=== PATIENT | male | born 2000 | race Caucasian/White ===

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

== ENCOUNTER 2022-02-27 14:53 | Emergency (ER) | payer BC, OTHER ==
[~2022-02-27 14:53] MED LIST: NORCO 7.5-3251 EACH PO; ZYRTEC10 MG PO
[2022-02-28 01:31] LABS: HEMOGLOBIN 15.6 gm/dl (14.0-17.5); RED BLOOD COUNT 4.99 M/UL (4.20-5.50); WHITE BLOOD COUNT 14.8 K/UL (4.5-11.0)
[2022-02-28 01:58] LABS: BUN/CREATININE RATIO 16 (0-10)
== END 2022-02-28 05:55 | disposition home or self-care (01) ==
LOC: ER1 14:53
PROVIDERS: Physician Assistant
DX: M25.552 Pain in left hip (principal); R45.851 Suicidal ideations; R45.850 Homicidal ideations; R40.2410 Glasgow coma scale score 13-15, unspecified time; W19.XXXA Unspecified fall, initial encounter; Z20.822 Contact with and (suspected) exposure to COVID-19
CPT/HCPCS: 72170; 73552; 80053; 80307; 85025; 93005; 99284; G0480; U0002